=== PATIENT | female | born 1970 | race Caucasian/White ===

== ENCOUNTER → 2017-08-21 | Outpatient (CLI) | payer OTHER ==
[~2017-08-21] MED LIST: HYDR12.53 PO; LISI40TA PO; OXYC-323 PO
[2017-08-21 14:14] LABS: BASO # 0.1 x10^3/uL (0.0-0.2); BASO % 1 % (0-3); EOS % 1 % (0-3); HEMATOCRIT 49.5 % (36.0-47.0); HEMOGLOBIN 16.4 g/dL (12.0-15.5); LYMPH # 1.7 x10^3/uL (1.0-4.8); LYMPH % 22 % (24-48); MEAN CORPUSCULAR HEMOGLOBIN 30 pg (25-35); MEAN CORPUSCULAR HGB CONC 33 g/dL (31-37); MEAN CORPUSCULAR VOLUME 91 fL (79-100); MONO % 6 % (0-9); NEUT % 69 % (31-73); PLATELET COUNT 309 x10^3/uL (140-400); RED BLOOD COUNT 5.45 x10^6/uL (3.50-5.40); RED CELL DISTRIBUTION WIDTH 13.7 % (11.5-14.5)
--- NOTE | 2017-08-21 14:15 | EKG ---
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
[2017-08-21 14:33] LABS: ALBUMIN 3.6 g/dL (3.4-5.0); ALBUMIN/GLOBULIN RATIO 0.9 (1.0-1.7); CALCIUM 9.8 mg/dL (8.5-10.1); CREATININE 1.2 mg/dL (0.6-1.0); GFR 48.4; TOTAL BILIRUBIN 0.6 mg/dL (0.2-1.0); TOTAL PROTEIN 7.6 g/dL (6.4-8.2)
[2017-08-21 14:37] LABS: POTASSIUM 2.7 mmol/L (3.5-5.1)
--- NOTE | 2017-08-21 15:53 | RAD ---
EXAM: Chest 2 views. HISTORY: Preoperative risk factors. COMPARISON: None. FINDINGS: Frontal and lateral views of the chest are obtained. Hyperinflation is consistent with chronic obstructive pulmonary disease. There are no confluent infiltrates. There is no pneumothorax or pleural effusion. The heart is not enlarged. The aortic arch is ectatic measuring 5.0 cm by radiographs. IMPRESSION: 1. Chronic obstructive pulmonary disease. 2. Aneurysmal dilatation of the aortic arch, but this may be partially projectional. Chest CT with contrast could further assess for aneurysm.
== END | disposition home or self-care (01) ==
LOC: SURGPAT 13:40
PROVIDERS: ATTEND Obstetrics & Gynecology
DX: Z01.818 Encounter for other preprocedural examination (principal); J44.9 Chronic obstructive pulmonary disease, unspecified; I71.2 Thoracic aortic aneurysm, without rupture
CPT/HCPCS: 36415; 71020; 80053; 85025; 93005

== ENCOUNTER → 2017-08-28 | Outpatient (CLI) | payer OTHER ==
[~2017-08-28] MED LIST changes: +IOHEXOL 300 MG/ML 100ML VIAL. IV ONE
--- NOTE | 2017-08-28 10:34 | RAD ---
CAD chest with IV contrast Indication: Abnormal chest x-ray. Patient provides history of dissection. Technique: CT of chest with 60 mL of Omnipaque 300 with multi planar reformats. Comparison: Chest x-ray from 08/21/2017 Findings: Heart is normal in size. No pericardial or pleural effusion. There is aneurysmal dilation of the descending thoracic aorta and distal aortic arch. The distal aortic arch diameter measures 4.4 cm (series 2 image 19). The mid descending thoracic aorta diameter measures 4.0 cm (series 2 image 38). The diameter of the aorta at the diaphragmatic hiatus measures 3.6 cm (series 2 image 54). The diameter of the aorta in the infrarenal segment measures 3.2 cm (series 2 image 68). The diameter of the proximal aortic arch measures 3.3 cm (series 2 image 23). The diameter at the level of aortic root approximately measures 3.6 cm (series 2 image 34). There is a intimal flap extending from the origin of the left subclavian artery extending down throughout the length of abdominal aorta and extending into the left proximal common iliac artery. The true lumen is smaller in diameter and lies along the medial and posterior aspect of the aorta probably due to false lumen. The celiac axis originates from the true lumen and is patent. The SMA origin its from the film and and is patent. The bilateral renal arteries originate from the true lumen and are patent. There is abrupt change in opacification of the true and false lumens after takeoff of the bilateral renal arteries this is likely due to delay in scan of the lower abdomen/pelvic sections which we have been added later on after visualization of dissection on the CT chest.. No periaortic inflammatory changes. The visualized sections through the liver, spleen, gallbladder, pancreas, adrenals are within normal limits. Atrophy of the right kidney with multifocal cortical scarring. There is a large nonobstructing stone in the inferior collecting system of the right kidney measuring 1.2 cm. No hydronephrosis. 5 mm nonobstructing stone is seen in the left kidney as well. No bowel obstruction. Mild atherosclerotic disease of the bilateral proximal common iliac arteries. No retroperitoneal or pelvic adenopathy. 6 cm nodular opacity seen in the right upper lobe adjacent to the right minor fissure (series 2 image 32). Chronic deformity noted in the right iliac bone likely posttraumatic. No suspicious bony lesions. Multilevel degenerative disc disease in the spine. Impression: 1. 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 Please see above for full details. 2. Nodule in the right upper lobe (6 cm). This may be intraparenchymal lymph node or slight or pulmonary nodule. CT chest in 6 months recommended. 3. Atrophic right kidney. Nonobstructive bilateral renal stones. Critical findings were identified on 08/28/2017 9:50 AM, read back and verified with Dr. KRZYSZTOF WOLFE MD on 08/28/2017 10:[address] Frankie Stuart DO. PQRS Compliance Statement: One or more of the following individualized dose reduction techniques were utilized for this examination: 1. Automated exposure control 2. Adjustment of the mA and/or kV according to patient size 3. Use of iterative reconstruction technique
== END | disposition home or self-care (01) ==
LOC: CT 08:35
PROVIDERS: ATTEND Obstetrics & Gynecology
DX: R91.8 Other nonspecific abnormal finding of lung field (principal); N20.0 Calculus of kidney; N26.1 Atrophy of kidney (terminal); I10 Essential (primary) hypertension; Z87.891 Personal history of nicotine dependence
CPT/HCPCS: 71260; Q9967

== ENCOUNTER → 2017-09-28 | Outpatient (CLI) | payer OTHER | END | disposition home or self-care (01) | LOC: ECHO 08:55 | DX: I11.9 Hypertensive heart disease without heart failure (principal); I37.1 Nonrheumatic pulmonary valve insufficiency; R06.00 Dyspnea, unspecified | CPT/HCPCS: 93306 ==

== ENCOUNTER 2017-11-11 17:12 | Inpatient (IN) | payer OTHER ==
[2017-11-11] MEDS: ACETAMINOPHEN 325 MG TABLET. PO (17:53)
[2017-11-11 18:19] LABS: ADD MAN DIFF? NO
[2017-11-11 18:29] LABS: ANION GAP 8 (6-14); BLOOD UREA NITROGEN 13 mg/dL (7-20); CALCIUM 8.5 mg/dL (8.5-10.1); CARBON DIOXIDE 30 mmol/L (21-32); CHLORIDE 100 mmol/L (98-107); CREATININE 0.8 mg/dL (0.6-1.0); GFR 77.2; GLUCOSE 119 mg/dL (70-99); POTASSIUM 3.6 mmol/L (3.5-5.1); SODIUM 138 mmol/L (136-145)
[2017-11-11 18:31] LABS: BASO % 0 % (0-3); EOS % 0 % (0-3); HEMATOCRIT 46.5 % (36.0-47.0); HEMOGLOBIN 15.3 g/dL (12.0-15.5); LYMPH # 0.4 x10^3/uL (1.0-4.8); LYMPH % 8 % (24-48); MEAN CORPUSCULAR HEMOGLOBIN 30 pg (25-35); MEAN CORPUSCULAR HGB CONC 33 g/dL (31-37); MEAN CORPUSCULAR VOLUME 90 fL (79-100); MONO # 0.5 x10^3/uL (0.0-1.1); MONO % 11 % (0-9); NEUT # 3.7 x10^3uL (1.8-7.7); NEUT % 81 % (31-73); PLATELET COUNT 225 x10^3/uL (140-400); RED BLOOD COUNT 5.16 x10^6/uL (3.50-5.40); RED CELL DISTRIBUTION WIDTH 13.7 % (11.5-14.5); WHITE BLOOD COUNT 4.6 x10^3/uL (4.0-11.0)
[2017-11-11 18:39] LABS: INFLUENZA A PATIENT NEGATIVE (NEGATIVE)
[2017-11-11 18:40] LABS: INFLUENZA B PATIENT POSITIVE (NEGATIVE)
[2017-11-11 18:41] LABS: OBC FLU VALID
[2017-11-11] MEDS ORDERED: MORPHINE SULFATE 2 MG/ML DISP.SYRIN. IV (20:00)
[2017-11-11] MEDS: IPRATRPIUM/ALBUTEROL 0.5/2.5MG 3 ML NEBU. NEB (20:07)
[2017-11-11] MEDS: OSELTAMIVIR 75 MG CAPSULE PO (20:16)
[2017-11-11] MEDS: LABETALOL 20 MG/4 ML DISP.SYRIN. IVP ×2 (20:17→23:01)
[2017-11-11] MEDS: IV NORMAL SALINE 500ML BAG 500 ML IV (23:01)
[2017-11-11] MEDS: IV NORMAL SALINE 1000ML BAG 1,000 ML IV (23:01)
[2017-11-12 01:32] LABS: BARBITURATES NEG (NEG); BENZODIAZEPINES NEG (NEG); CANNABINOIDS NEG (NEG); COCAINE NEG (NEG); METHADONE NEG (NEG); OPIATES POS (NEG); PHENCYCLIDINE NEG (NEG)
[2017-11-12 01:44] LABS: AMPHETAMINE/METHAMPHETAMINE POS (NEG)
[2017-11-12 01:45] LABS: ETHANOL, URINE NEG (NEG)
[2017-11-12] MEDS: oxyCODONE/APAP 5/325 1 TAB TABLET PO ×2 (04:04→13:42)
[2017-11-12] MEDS: LABETALOL 20 MG/4 ML DISP.SYRIN. IVP ×2 (04:08→20:35)
[2017-11-12 05:09] LABS: ADD MAN DIFF? NO
[2017-11-12 05:24] LABS: BASO % 0 % (0-3); EOS % 0 % (0-3); HEMATOCRIT 42.1 % (36.0-47.0); LYMPH # 0.5 x10^3/uL (1.0-4.8); LYMPH % 14 % (24-48); MEAN CORPUSCULAR HEMOGLOBIN 30 pg (25-35); MEAN CORPUSCULAR HGB CONC 33 g/dL (31-37); MEAN CORPUSCULAR VOLUME 91 fL (79-100); MONO # 0.4 x10^3/uL (0.0-1.1); MONO % 13 % (0-9); NEUT # 2.6 x10^3uL (1.8-7.7); NEUT % 73 % (31-73); PLATELET COUNT 212 x10^3/uL (140-400); RED BLOOD COUNT 4.65 x10^6/uL (3.50-5.40); RED CELL DISTRIBUTION WIDTH 13.9 % (11.5-14.5); WHITE BLOOD COUNT 3.5 x10^3/uL (4.0-11.0)
[2017-11-12] MEDS: IV NORMAL SALINE 1000ML BAG 1,000 ML IV ×2 (05:27→13:43)
[2017-11-12 05:38] LABS: ANION GAP 8 (6-14); BLOOD UREA NITROGEN 11 mg/dL (7-20); CALCIUM 8.2 mg/dL (8.5-10.1); CARBON DIOXIDE 27 mmol/L (21-32); CHLORIDE 103 mmol/L (98-107); CREATININE 0.9 mg/dL (0.6-1.0); GFR 67.4; GLUCOSE 134 mg/dL (70-99); POTASSIUM 3.3 mmol/L (3.5-5.1); SODIUM 138 mmol/L (136-145)
[2017-11-12] MEDS: ENOXAPARIN 40 MG/0.4 ML SYRINGE. SQ (08:36)
[2017-11-12] MEDS: LISINOPRIL 20 MG TABLET PO (08:36)
[2017-11-12] MEDS: hydroCHLOROthiazide 12.5 MG CAPSULE PO (08:37)
[2017-11-12] MEDS: OSELTAMIVIR 75 MG CAPSULE PO ×2 (08:37→20:36)
[2017-11-12] MEDS: ONDANSETRON PF 4 MG/2 ML VIAL. IV (11:00)
[2017-11-12] MEDS ORDERED: MORPHINE SULFATE 2 MG/ML DISP.SYRIN. IV (11:15)
[2017-11-12] MEDS ORDERED: hydrALAZINE 20 MG/ML VIAL. IVP (11:15)
[2017-11-12] MEDS ORDERED: ONDANSETRON PF 4 MG/2 ML VIAL. IV (11:15)
[2017-11-12] MEDS ORDERED: DOCUSATE SODIUM 100 MG CAPSULE. PO (11:15)
[2017-11-12] MEDS: POTASSIUM CHLORIDE 20 MEQ TABLET.ER. PO (13:43)
[2017-11-12] MEDS: traMADol 50 MG TABLET PO (20:36)
[2017-11-12] MEDS: ACETAMINOPHEN 325 MG TABLET. PO (20:36)
[2017-11-13] MEDS: IV NORMAL SALINE 1000ML BAG 1,000 ML IV ×2 (01:12→14:43)
[2017-11-13] MEDS: LABETALOL 20 MG/4 ML DISP.SYRIN. IVP (02:55)
[2017-11-13 04:22] LABS: ADD MAN DIFF? NO
[2017-11-13 04:39] LABS: BASO % 0 % (0-3); EOS % 0 % (0-3); HEMATOCRIT 42.8 % (36.0-47.0); HEMOGLOBIN 14.3 g/dL (12.0-15.5); LYMPH # 0.5 x10^3/uL (1.0-4.8); LYMPH % 14 % (24-48); MEAN CORPUSCULAR HEMOGLOBIN 30 pg (25-35); MEAN CORPUSCULAR HGB CONC 34 g/dL (31-37); MEAN CORPUSCULAR VOLUME 90 fL (79-100); MONO # 0.4 x10^3/uL (0.0-1.1); MONO % 11 % (0-9); NEUT # 2.5 x10^3uL (1.8-7.7); NEUT % 75 % (31-73); PLATELET COUNT 184 x10^3/uL (140-400); RED BLOOD COUNT 4.75 x10^6/uL (3.50-5.40); WHITE BLOOD COUNT 3.3 x10^3/uL (4.0-11.0)
[2017-11-13 04:50] LABS: ANION GAP 6 (6-14); BLOOD UREA NITROGEN 7 mg/dL (7-20); CALCIUM 7.8 mg/dL (8.5-10.1); CARBON DIOXIDE 30 mmol/L (21-32); CHLORIDE 102 mmol/L (98-107); CREATININE 0.7 mg/dL (0.6-1.0); GFR 90.1; GLUCOSE 121 mg/dL (70-99); POTASSIUM 3.4 mmol/L (3.5-5.1); SODIUM 138 mmol/L (136-145)
[2017-11-13] MEDS: hydroCHLOROthiazide 12.5 MG CAPSULE PO (07:49)
[2017-11-13] MEDS: OSELTAMIVIR 75 MG CAPSULE PO ×2 (07:49→20:48)
[2017-11-13] MEDS: LISINOPRIL 20 MG TABLET PO (07:50)
[2017-11-13] MEDS: ENOXAPARIN 40 MG/0.4 ML SYRINGE. SQ (07:50)
[2017-11-13] MEDS: ACETAMINOPHEN 325 MG TABLET. PO (10:00)
[2017-11-13] MEDS: oxyCODONE/APAP 5/325 1 TAB TABLET PO (20:48)
[2017-11-14] MEDS: traMADol 50 MG TABLET PO (00:13)
[2017-11-14] MEDS: ALBUTEROL SULFATE 2.5 MG/3 ML NEBU. NEB (00:13)
[2017-11-14] MEDS: IV NORMAL SALINE 1000ML BAG 1,000 ML IV (04:05)
[2017-11-14 04:41] LABS: ADD MAN DIFF? NO
[2017-11-14 04:50] LABS: BASO % 1 % (0-3); EOS % 0 % (0-3); LYMPH % 30 % (24-48); MEAN CORPUSCULAR HEMOGLOBIN 30 pg (25-35); MEAN CORPUSCULAR HGB CONC 33 g/dL (31-37); MEAN CORPUSCULAR VOLUME 90 fL (79-100); MONO # 0.3 x10^3/uL (0.0-1.1); MONO % 10 % (0-9); NEUT # 1.9 x10^3uL (1.8-7.7); NEUT % 59 % (31-73); PLATELET COUNT 160 x10^3/uL (140-400); RED BLOOD COUNT 4.67 x10^6/uL (3.50-5.40); WHITE BLOOD COUNT 3.3 x10^3/uL (4.0-11.0)
[2017-11-14 05:17] LABS: ALBUMIN 2.7 g/dL (3.4-5.0); ALBUMIN/GLOBULIN RATIO 0.8 (1.0-1.7); ALK PHOS 64 U/L (46-116); ALT (SGPT) 16 U/L (14-59); ANION GAP 8 (6-14); AST (SGOT) 24 U/L (15-37); BLOOD UREA NITROGEN 12 mg/dL (7-20); BUN/CREATININE RATIO 17 (6-20); CALCIUM 8.3 mg/dL (8.5-10.1); CARBON DIOXIDE 28 mmol/L (21-32); CHLORIDE 103 mmol/L (98-107); CREATININE 0.7 mg/dL (0.6-1.0); GFR 90.1; GLUCOSE 92 mg/dL (70-99); POTASSIUM 3.3 mmol/L (3.5-5.1); SODIUM 139 mmol/L (136-145); TOTAL BILIRUBIN 0.5 mg/dL (0.2-1.0); TOTAL PROTEIN 6.3 g/dL (6.4-8.2)
== END 2017-11-14 06:47 | disposition left against medical advice (07) | DRG 193 ==
LOC: ER 17:12 → 5 NORTH 18:00
DX: J10.1 Influenza due to other identified influenza virus with other respiratory manifestations (principal); J96.00 Acute respiratory failure, unspecified whether with hypoxia or hypercapnia; E87.6 Hypokalemia; I10 Essential (primary) hypertension; I77.819 Aortic ectasia, unspecified site; M54.5 Low back pain; F15.10 Other stimulant abuse, uncomplicated
CPT/HCPCS: 36415; 71045; 80048; 80053; 80307; 85025; 87804; 87804-59; 94640; 94760; 96374; 99285; 99285-25; J1650; J2405; J3490; J7030; J7040; J7613; J7620

== ENCOUNTER 2018-07-26 08:34 | Emergency (ER) | payer OTHER ==
[~2018-07-26] VITALS: Ht 167.6 cm; Wt 68.0 kg
[~2018-07-26 08:34] MED LIST changes: -IOHEXOL 300 MG/ML 100ML VIAL. IV ONE; +LISI-130 PO; -LISI40TA PO
--- NOTE | 2018-07-26 09:49 | PHYS DOC ---
Past Medical History Past Medical History: Hypertension Additional Past Medical Histor: ectopic preg Past Surgical History: , Tubal ligation Smoking: Cigarettes Alcohol Use: Occasionally Drug Use: Amphetamine Adult General Chief Complaint Chief Complaint: ABDOMINAL PAIN HPI HPI 48-year-old female presenting to the emergency department today with abdominal pain in the left lower quadrant that is sharp has been present for about 24 hours. Nonradiating, nonmigratory and without alleviating factors. She has a history of a tubal and is status post tubal ligation. Review of systems was positive for nausea with vomiting. She describes her vomitus is nonbilious and nonbloody. She denies fevers or chills. She denies chest pain or shortness of breath. All other review of systems is negative unless otherwise noted in history of present illness. ED course: 48-year-old female presenting with left lower quadrant abdominal pain. hypertension present. Blood work ordered along with CT abdomen pelvis. The time is now 1155: I have been informed the patient has an aortic dissection and aneurysm. I went and spoke with the patient apparently she has had this for approximately 4 years and is currently treated by Dr. Maria at . I spoke with Dr. Murray who is our vascular surgeon on-call who recommended initiating blood pressure control and heart rate control along with getting angiogram of the chest abdomen pelvis. She will need to be transferred to [facility]. We will initiate transfer. The time is now 2:07 PM. I spoken with the patient's cardiothoracic surgeon at the [facility] Dr. Maria who states the patient's aortic dissection does not need an immediate surgery. He did offer to accept the patient for admission however after talking to our cardiothoracic surgeon Dr. LYNCH , we will admit the patient to our hospital for hypertension management. The remainder the workup is unremarkable. After coordinating the patient to be admitted to our hospital the patient desires to leave AMA. I informed the patient of their right to a medical screening exam and any treatment and/or stabilization that may be necessary regardless of their ability to pay. The patient appears to have intact insight, judgment, and reason. In my opinion, this patient has the capacity to make decisions. The patient has a type B aortic dissection. My desire and plan was to admit the patient for blood pressure management because her blood pressure was over 200 when she came in in the emergency department. I explained the risk of and disability to the patient in plain language which they were able to demonstrate in their own words verbal understanding. I recommended the pt follow up with her cardiothoracic surgeon in 1 day or pcp in 1 day to treat her bp. I explained that at any time if the patient changed their mind, we are always open and would be happy to have them back. The patient refused further care and then left against medical advice. Review of Systems Review of Systems SEE ABOVE. Current Medications Current Medications Current Medications Medications (Trade) Dose Ordered Sig/Kennedi Start Time Stop Time Status Last Admin Dose Admin Clonidine HCl (Catapres) 0.1 mg 1X ONCE 07/26/18 10:15 07/26/18 10:16 DC 07/26/18 10:23 0.1 MG Esmolol HCl 250 ml @ 0 mls/hr 1X ONCE 07/26/18 12:00 07/26/18 12:01 DC 07/26/18 12:32 21 MLS/HR Fentanyl Citrate (Fentanyl 2ml Vial) 50 mcg PRN Q30MIN PRN 07/26/18 10:15 07/26/18 10:55 50 MCG Info (CONTRAST GIVEN -- Rx MONITORING) 1 each PRN DAILY PRN 07/26/18 11:00 07/28/18 10:59 Iohexol (Omnipaque 300 Mg/ml) 90 ml 1X ONCE 07/26/18 12:00 07/26/18 12:01 DC 07/26/18 12:09 90 ML Morphine Sulfate (Morphine Sulfate) 2 mg PRN Q2HR PRN 07/26/18 14:00 07/27/18 13:59 Ondansetron HCl (Zofran) 4 mg PRN Q8HRS PRN 07/26/18 14:00 07/27/18 13:59 Sodium Chloride 1,000 ml @ 125 mls/hr Q8H 07/26/18 13:56 07/27/18 13:55 Allergies Allergies Allergies Coded Allergies Type Severity Reaction Last Updated Verified No Known Drug Allergies 08/21/17 No Physical Exam Physical Exam SEE ABOVE Constitutional: Well developed, well nourished, no acute distress, non-toxic appearance. [] HENT: Normocephalic, atraumatic, bilateral external ears normal, oropharynx moist, no oral exudates, nose normal. [] Eyes: PERRLA, EOMI, conjunctiva normal, no discharge. [] Neck: Normal range of motion, no tenderness, supple, no stridor. [] Cardiovascular:Heart rate regular rhythm, no murmur [] Lungs & Thorax: Bilateral breath sounds clear to auscultation [] Abdomen: Bowel sounds normal, soft, no tenderness, no masses, no pulsatile masses. No rebound tenderness or guarding. Negative McBurney's point. Negative Smith sign. Skin: Warm, dry, no erythema, no rash. [] Back: No tenderness, no CVA tenderness. [] Extremities: No tenderness, no cyanosis, no clubbing, ROM intact, no edema. [] Neurologic: Alert and oriented X 3, normal motor function, normal sensory function, no focal deficits noted. [] Psychologic: Affect normal, judgement normal, mood normal. [] Current Patient Data Vital Signs Vital Signs Date Time Temp Pulse Resp B/P (MAP) Pulse Ox O2 Delivery O2 Flow Rate FiO2 07/26/18 13:49 72 21 136/91 (106) 97 07/26/18 13:37 Room Air 07/26/18 10:55 2.0 07/26/18 09:42 97.6 97.6 Lab Values Laboratory Tests Test 07/26/18 09:26 07/26/18 09:50 POC Urine HCG, Qualitative Hcg negative (Negative) White Blood Count 8.3 x10^3/uL (4.0-11.0) Red Blood Count 5.47 x10^6/uL (3.50-5.40) H Hemoglobin 17.3 g/dL (12.0-15.5) H Hematocrit 50.2 % (36.0-47.0) H Mean Corpuscular Volume 92 fL (79-100) Mean Corpuscular Hemoglobin 32 pg (25-35) Mean Corpuscular Hemoglobin Concent 34 g/dL (31-37) Red Cell Distribution Width 12.8 % (11.5-14.5) Platelet Count 257 x10^3/uL (140-400) Neutrophils (%) (Auto) 79 % (31-73) H Lymphocytes (%) (Auto) 13 % (24-48) L Monocytes (%) (Auto) 7 % (0-9) Eosinophils (%) (Auto) 0 % (0-3) Basophils (%) (Auto) 1 % (0-3) Neutrophils # (Auto) 6.6 x10^3uL (1.8-7.7) Lymphocytes # (Auto) 1.0 x10^3/uL (1.0-4.8) Monocytes # (Auto) 0.6 x10^3/uL (0.0-1.1) Eosinophils # (Auto) 0.0 x10^3/uL (0.0-0.7) Basophils # (Auto) 0.0 x10^3/uL (0.0-0.2) Urine Collection Type Unknown Urine Color Yellow Urine Clarity Cloudy Urine pH 7.5 Urine Specific [place] 1.015 Urine Protein 100 mg/dL (NEG-TRACE) Urine Glucose (UA) Negative mg/dL (NEG) Urine Ketones (Stick) Negative mg/dL (NEG) Urine Blood Negative (NEG) Urine Nitrite Negative (NEG) Urine Bilirubin Negative (NEG) Urine Urobilinogen Dipstick 0.2 mg/dL (0.2 mg/dL) Urine Leukocyte Esterase Negative (NEG) Urine RBC 0 /HPF (0-2) Urine WBC 0 /HPF (0-4) Urine Squamous Epithelial Cells Few /LPF Urine Amorphous Sediment Present /HPF Urine Bacteria 0 /HPF (0-FEW) Sodium Level 141 mmol/L (136-145) Potassium Level 3.2 mmol/L (3.5-5.1) L Chloride Level 101 mmol/L (98-107) Carbon Dioxide Level 29 mmol/L (21-32) Anion Gap 11 (6-14) Blood Urea Nitrogen 11 mg/dL (7-20) Creatinine 0.7 mg/dL (0.6-1.0) Estimated GFR (Cockcroft-Gault) 89.7 Glucose Level 128 mg/dL (70-99) H Lactic Acid Level 0.9 mmol/L (0.4-2.0) Calcium Level 9.4 mg/dL (8.5-10.1) Total Bilirubin 0.8 mg/dL (0.2-1.0) Direct Bilirubin 0.1 mg/dL (0.0-0.2) Aspartate Amino Transferase (AST) 22 U/L (15-37) Alanine Aminotransferase (ALT) 28 U/L (14-59) Alkaline Phosphatase 73 U/L (46-116) Troponin I Quantitative < 0.017 ng/mL (0.000-0.055) Total Protein 7.4 g/dL (6.4-8.2) Albumin 3.9 g/dL (3.4-5.0) Lipase 79 U/L (73-393) Serum Test, Qualitative Negative (NEG) Laboratory Tests 07/26/18 09:50 Laboratory Tests 07/26/18 09:50 EKG EKG [] Radiology/Procedures Radiology/Procedures [] Course & Med Decision Making Course & Med Decision Making Pertinent Labs and Imaging studies reviewed. (See chart for details) [] Dragon Disclaimer Dragon Disclaimer This electronic medical record was generated, in whole or in part, using a voice recognition dictation system. Departure Departure Impression: Primary Impression: Aortic dissection Disposition: AGAINST MEDICAL ADVICE Condition: GRAVE Referrals: ALYSHA MORA MD (PCP) KULDEEP GOLD MD Jul 26, 2018 09:49
[2018-07-26] MEDS ORDERED: IV NORMAL SALINE 1000ML BAG 1,000 ML IV SCH ×2 (10:05→13:56)
--- NOTE | 2018-07-26 10:12 | EKG ---
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
[2018-07-26 10:15] LABS: BASO % 1 % (0-3); EOS % 0 % (0-3); HEMATOCRIT 50.2 % (36.0-47.0); HEMOGLOBIN 17.3 g/dL (12.0-15.5); LYMPH % 13 % (24-48); MEAN CORPUSCULAR HEMOGLOBIN 32 pg (25-35); MEAN CORPUSCULAR HGB CONC 34 g/dL (31-37); MEAN CORPUSCULAR VOLUME 92 fL (79-100); MONO # 0.6 x10^3/uL (0.0-1.1); MONO % 7 % (0-9); NEUT # 6.6 x10^3uL (1.8-7.7); NEUT % 79 % (31-73); PLATELET COUNT 257 x10^3/uL (140-400); RED BLOOD COUNT 5.47 x10^6/uL (3.50-5.40); RED CELL DISTRIBUTION WIDTH 12.8 % (11.5-14.5); WHITE BLOOD COUNT 8.3 x10^3/uL (4.0-11.0)
[2018-07-26] MEDS ORDERED: cloNIDine HCL 0.1 MG TABLET PO ONE (10:15)
[2018-07-26] MEDS ORDERED: ONDANSETRON PF 4 MG/2 ML VIAL. IV ONE (10:15)
[2018-07-26 10:16] LABS: BILIRUBIN,URINE NEGATIVE (NEG); CLARITY,URINE CLOUDY; COLOR,URINE YELLOW; NITRITE,URINE NEGATIVE (NEG); PH,URINE 7.5; PROTEIN,URINE 100 mg/dL (NEG-TRACE); UROBILINOGEN,URINE 0.2 mg/dL (0.2 mg/dL)
[2018-07-26 10:21] LABS: AMORPHOUS SEDIMENT,UR PRESENT /HPF; BACTERIA,URINE 0 /HPF (0-FEW); CALCIUM 9.4 mg/dL (8.5-10.1); CREATININE 0.7 mg/dL (0.6-1.0); GFR 89.7; POTASSIUM 3.2 mmol/L (3.5-5.1); RBC,URINE 0 /HPF (0-2); SQUAMOUS EPITHELIAL CELL,UR FEW /LPF; WBC,URINE 0 /HPF (0-4)
[2018-07-26 10:24] LABS: PREG TEST PT QUAL NEGATIVE (NEG)
[2018-07-26] MEDS: fentaNYL PF VIAL 100 MCG/2 ML VIAL IV PRN ×2 (10:24→10:55)
[2018-07-26 10:27] LABS: ALBUMIN 3.9 g/dL (3.4-5.0); DIRECT BILIRUBIN 0.1 mg/dL (0.0-0.2); TOTAL BILIRUBIN 0.8 mg/dL (0.2-1.0); TOTAL PROTEIN 7.4 g/dL (6.4-8.2)
[2018-07-26] MEDS ORDERED: IOHEXOL 300 MG/ML 100ML VIAL. IV ONE ×2 (10:45→12:00)
[2018-07-26] MEDS ORDERED: CONTRAST GIVEN. MC PRN (11:00)
--- NOTE | 2018-07-26 11:48 | RAD ---
CT ABD PELV W/ IV CONTRST ONLY Indication: LEFT LOWER QUADRANT ABD PAIN
OMNI 300 75ML, NO PRIORS Exposure: One or more of the following individualized dose reduction techniques were utilized for this examination: 1. Automated exposure control 2. Adjustment of the mA and/or kV according to patient size 3. Use of iterative reconstruction technique. Comparison: None are available. Contrast: Intravenous contrast was given. No oral contrast per request. FINDINGS: Lower thorax: Lung bases are clear. Liver: Several tiny subcentimeter lesions, too small to characterize but would most commonly be of benign etiology. Spleen: Unremarkable Pancreas: Unremarkable Adrenals: No evidence of mass. Kidneys: Right kidney demonstrates an abnormal morphology with a nodular contour and a small size. Right kidney measures 9.9 cm longitudinal, left kidney measures 11.7 cm longitudinal. Both kidneys demonstrate symmetric enhancement with contrast. Dense calcification within the lower pole the right kidney could represent a nonobstructive calculus or parenchymal calcification, measuring 12 mm. Urinary tracts: No hydronephrosis. Gallbladder: Mild gallbladder wall thickening. No calcified stone. Lymph nodes: No significant enlargement Vessels: The aorta is aneurysmal, greatest at the lower thorax where it is partially visualized, and measures 5.7 cm x 4.4 cm in transverse dimensions. There is an aortic dissection. This is visualized on the uppermost slice at the level of the lower chest. This distends into the left common iliac artery and probably into the proximal aspect of the left external iliac artery. The true lumen appears to supply the celiac trunk and superior mesenteric artery which are patent. The left renal artery is supplied by the true lumen. The right renal artery is supplied by the false lumen. Flow is identified within both renal arteries. Inferior mesenteric artery is difficult to localize origin but probably the true lumen. Thrombus surrounds the distal false lumen which becomes narrowed just above the bifurcation. The dissection extends into the left common iliac artery and possibly the very proximal aspect of the left external iliac artery. GI tract: No evidence of acute colitis. No evidence of bowel obstruction. Appendix is normal. Reproductive organs:No evidence of mass. Urinary bladder: Unremarkable. Peritoneum: No evidence of pneumoperitoneum. No free fluid. Abdominal wall:Unremarkable Spine: Degenerative spondylosis Bones: Degenerative changes at the skeletal pelvis. There is some deformity at the right iliac bone appears chronic and could be related to prior surgery, but no active bone destruction is seen. IMPRESSION: 1. Aneurysm of the partially visualized lower thoracic aorta and abdominal aorta, measures largest on the uppermost thoracic slice, 5.7 cm x 4.4 cm. Partially visualized aortic dissection also extending from this upper most slice, into the left iliac artery. The true lumen appears to supply the celiac trunk, superior mesenteric artery and left renal artery, and the false lumen appears to supply the right renal artery. Recommend CTA of the thoracic aorta to evaluate the extent of involvement of the thoracic aorta with aneurysm and dissection. Correlate for risk factors such as connective tissue disease. 2. Right kidney is small with a nodular contour, may be due to chronic vascular compromise. However, the kidneys demonstrate symmetric enhancement on this exam. 3. Dense calcification or nonobstructing calculus at the lower pole the right kidney. 4. Gallbladder wall thickening, raising the question of cholecystitis. No evidence of calcified stone. FOR INTERNAL CODING PURPOSES Critical result: Findings discussed with Dr. Allen at 07/26/2018 11:41 AM. RESULT CODE: (C) Electronically signed by: Trenton Upton MD (07/26/2018 11:45 AM) [id number]
[2018-07-26] MEDS ORDERED: ESMOLOL 2500MG/250ML PREMIX 250 ML IV ONE (12:00)
--- NOTE | 2018-07-26 12:19 | RAD ---
Pelvic ultrasound Clinical Indication:LLQ PAIN. . Transabdominal scan was performed Uterus: * Size (in centimeters): 7.1 longitudinal by 3.4 AP by 4.5 wide. * Appearance: No evidence of mass * Endometrium: 3 mm endometrial stripe thickness. Uniform appearance. Right ovary: * Size: 2.1 cm long axis. * Blood flow: Intact * Appearance: No significant mass. Left ovary: * Size: 3.0 cm long axis. * Blood flow: Intact * Appearance: No significant mass. Free fluid: None visualized IMPRESSION: No significant sonographic abnormality. Electronically signed by: Trenton Upton MD (07/26/2018 12:16 PM) [id number]
--- NOTE | 2018-07-26 13:05 | RAD ---
CTA of the chest, abdomen and pelvis with contrast, 07/26/2018: History: Aortic dissection. Multidetector CT imaging was performed following an IV bolus injection of iodinated contrast material. Multiplanar reconstructions were produced including 3-D volume rendered reconstructions of the aorta and its major branches. Comparison is made to a CT abdomen and pelvis study from earlier in the day as well as an older CT chest exam from 08/28/2017. The ascending aorta is of normal caliber. There are pulsation type artifact related to the proximal ascending aorta. The origins of the cervical cephalic arteries from the aortic arch are patent. There is dilatation of the proximal descending thoracic aorta which measures 5 cm in width. A dissection flap originates from the proximal descending aorta just distal to the takeoff of the left subclavian artery. These findings are unchanged since 08/28/2017 study. There is a large false lumen which is opacified and spirals down through the thoracic aorta into the abdomen. The true lumen is smaller. The aorta measures 4.5 cm in width at the level of diaphragm. In the abdomen, the celiac and superior mesenteric arteries are patent, arising from the true lumen. There does appear to be moderate narrowing at their origins. Single patent renal arteries arise from the true lumen. At the infrarenal level the aorta measures 3.9 x 4.2 cm compared to measurements of 3.4 x 3.8 cm on 08/28/2017 exam. The dissection flap extends into the left common iliac artery but not the right. The true lumen at the left common iliac artery level is severely narrowed. The dissection flap extends inferiorly into the left external iliac artery at which point it is no longer visible. The true and false lumens are opacified throughout their courses. Incidental CT findings include the presence of moderate right renal cortical scarring. There are calculi in the lower pelvis of both kidneys. There is edematous thickening of the gallbladder wall. A small unchanged density in the right upper lobe adjacent to the minor fissure is probably a scar. IMPRESSION: 1. Aneurysmal dilatation of the descending thoracic and abdominal aorta with an associated chronic type B dissection extending down to the left external iliac artery level as described above. The dissection appears stable since 08/28/2017. 2. The infrarenal abdominal aortic aneurysm component of this process has increased slightly in size since 08/28/2017. 3. Nonobstructing bilateral intrarenal calculi. PQRS Compliance Statement: One or more of the following individualized dose reduction techniques were utilized for this examination: 1. Automated exposure control 2. Adjustment of the mA and/or kV according to patient size 3. Use of iterative reconstruction technique
[2018-07-26 14:00] VITALS: BP 129/77
[2018-07-26] MEDS ORDERED: ONDANSETRON PF 4 MG/2 ML VIAL. IV PRN (14:00)
[2018-07-26] MEDS ORDERED: MORPHINE SULFATE 2 MG/ML VIAL. IV PRN (14:00)
== END 2018-07-26 14:04 | disposition left against medical advice (07) ==
LOC: ER 08:34
DX: I71.02 Dissection of abdominal aorta (principal); R11.2 Nausea with vomiting, unspecified; I10 Essential (primary) hypertension; F17.210 Nicotine dependence, cigarettes, uncomplicated; Z98.51 Tubal ligation status
CPT/HCPCS: 36415; 71275; 74174; 74177; 76856; 80048; 80076; 81001; 81025; 83605; 83690; 84484; 84703; 85025; 93005; 96361; 96365; 96375; 96376; 99285; J2405; J3010; J3490; J7030; Q9967

== ENCOUNTER 2018-08-02 14:18 | Emergency (ER) | payer OTHER ==
[~2018-08-02] VITALS: Ht 165.1 cm; Wt 66.8 kg
[2018-08-02 14:57] LABS: BILIRUBIN,URINE NEGATIVE (NEG); CLARITY,URINE CLEAR; COLOR,URINE YELLOW; NITRITE,URINE POSITIVE (NEG); PH,URINE 5.5; PROTEIN,URINE 30 mg/dL (NEG-TRACE); UROBILINOGEN,URINE 0.2 mg/dL (0.2 mg/dL)
[2018-08-02 15:05] LABS: BACTERIA,URINE MANY /HPF (0-FEW); SQUAMOUS EPITHELIAL CELL,UR MOD /LPF
[2018-08-02] MEDS ORDERED: LABETALOL 20 MG/4 ML DISP.SYRIN. IVP ONE (15:15)
[2018-08-02 15:21] LABS: BARBITURATES NEG (NEG); BENZODIAZEPINES POS (NEG); CANNABINOIDS NEG (NEG); COCAINE NEG (NEG); METHADONE NEG (NEG); OPIATES NEG (NEG); PHENCYCLIDINE NEG (NEG)
[2018-08-02 15:25] LABS: AMPHETAMINE/METHAMPHETAMINE POS (NEG)
--- NOTE | 2018-08-02 15:31 | EKG ---
[facility] [address] [place] [address] Test Date: 2018-08-02 Test Time: 15:11:23 Pat Name: JOSE ANDRADE Department: Room: Gender: F Partner: : 1970 Requested By: CHETNA ESPARZA Order Number: [id number] Reading MD: Lenny Burt MD Measurements Intervals [place] Rate: 95 P: 14 HI: 146 QRS: 21 QRSD: 88 T: 118 QT: 334 QTc: 423 Interpretive Statements SINUS RHYTHM NON-SPECIFIC ST/T CHANGES Electronically Signed On 08-05-2018 14:06:24 HAIR SALON MANAGER by Lenny Burt MD
--- NOTE | 2018-08-02 16:04 | RAD ---
CHEST PA LATERAL History: Low abdominal pain, history of aortic dissection Comparison: AP chest, November 11, 2017. Findings: Aneurysmal and tortuous thoracic aorta is unchanged. Cardiac size is normal. Pulmonary vasculature is normal. The lungs are clear. No pleural effusion or pneumothorax is seen. There is no acute bone abnormality. IMPRESSION: 1. No acute cardiopulmonary process. 2. Radiographically stable thoracic aortic aneurysm. Electronically signed by: Brandin Cobb MD (08/02/2018 4:01 PM) [id number]
[2018-08-02] MEDS ORDERED: ACETAMINOPHEN 500 MG TABLET PO ONE (16:30)
--- NOTE | 2018-08-02 16:56 | PHYS DOC ---
Past Medical History Past Medical History: Hypertension Additional Past Medical Histor: ectopic preg Past Surgical History: , Tubal ligation Alcohol Use: Occasionally Drug Use: Methamphetamine Adult General Chief Complaint Chief Complaint: ABDOMINAL PAIN HPI HPI Patient is a 48 year old female with history of hypertension, stable aortic dissection, who presents today complaining of 8 out of 10 throbbing bilateral lower abdominal pain that has been going on for 10 days. Patient states she was seen in our ED 5 days ago. She states she had an extensive workup including a CT of the chest and abdomen as well as ultrasound of the abdomen. She states there was no acute findings but she was noted to have a chronic aortic dissection which she states she followed was admitted at [facility] a couple days ago she states they did not do anything for it. Patient states the pain has continued since then. She states the pain is worse at night. Denies any chest pain or shortness of breath. Review of Systems Review of Systems Constitutional: Denies fever or chills [] Eyes: Denies change in visual acuity, redness, or eye pain [] HENT: Denies nasal congestion or sore throat [] Respiratory: Denies cough or shortness of breath [] Cardiovascular: No additional information not addressed in HPI [] GI: Reports bilateral lower abdominal pain, denies nausea, vomiting, bloody stools or diarrhea [] : Denies dysuria or hematuria [] Musculoskeletal: Denies back pain or joint pain [] Integument: Denies rash or skin lesions [] Neurologic: Denies headache, focal weakness or sensory changes [] All other systems were reviewed and found to be within normal limits, except as documented in this note. Current Medications Current Medications Current Medications Medications (Trade) Dose Ordered Sig/Kennedi Start Time Stop Time Status Last Admin Dose Admin Acetaminophen (Tylenol) 1,000 mg 1X ONCE 08/02/18 16:30 08/02/18 16:31 DC 08/02/18 16:30 1,000 MG Ceftriaxone Sodium 50 ml @ 100 mls/hr 1X ONCE 08/02/18 16:15 08/02/18 16:44 DC 08/02/18 16:15 100 MLS/HR Labetalol HCl (Normodyne Iv Push) 10 mg 1X ONCE 08/02/18 15:15 08/02/18 15:16 DC 08/02/18 16:05 10 MG Allergies Allergies Allergies Coded Allergies Type Severity Reaction Last Updated Verified No Known Drug Allergies 08/21/17 No Physical Exam Physical Exam Constitutional: Well developed, well nourished, no acute distress, non-toxic appearance. [] HENT: Normocephalic, atraumatic, bilateral external ears normal, oropharynx moist, no oral exudates, nose normal. [] Eyes: PERRLA, EOMI, conjunctiva normal, no discharge. [] Neck: Normal range of motion, no tenderness, supple, no stridor. [] Cardiovascular:Heart rate regular rhythm, no murmur [] Lungs & Thorax: Bilateral breath sounds clear to auscultation [] Abdomen: Bowel sounds normal, soft, diffuse tenderness in the lower abdomen worse on the left lower quadrant tenderness, no masses, no pulsatile masses. [] Skin: Warm, dry, no erythema, no rash. [] Back: No tenderness, no CVA tenderness. [] Extremities: No tenderness, no cyanosis, no clubbing, ROM intact, no edema. [] Neurologic: Alert and oriented X 3, normal motor function, normal sensory function, no focal deficits noted. [] Psychologic: Affect normal, judgement normal, mood normal. [] Current Patient Data Vital Signs Vital Signs Date Time Temp Pulse Resp B/P (MAP) Pulse Ox O2 Delivery O2 Flow Rate FiO2 08/02/18 17:22 98.3 82 16 162/90 (114) 98 Room Air 98.3 Lab Values Laboratory Tests Test 08/02/18 14:50 08/02/18 15:56 08/02/18 16:50 Urine Collection Type Unknown Urine Color Yellow Urine Clarity Clear Urine pH 5.5 Urine Specific [place] 1.025 Urine Protein 30 mg/dL (NEG-TRACE) Urine Glucose (UA) Negative mg/dL (NEG) Urine Ketones (Stick) Negative mg/dL (NEG) Urine Blood Trace (NEG) Urine Nitrite Positive (NEG) Urine Bilirubin Negative (NEG) Urine Urobilinogen Dipstick 0.2 mg/dL (0.2 mg/dL) Urine Leukocyte Esterase Moderate (NEG) Urine RBC 1-2 /HPF (0-2) Urine WBC 11-20 /HPF (0-4) Urine Squamous Epithelial Cells Mod /LPF Urine Bacteria Many /HPF (0-FEW) Urine Mucus Slight /LPF Urine Opiates Screen Neg (NEG) Urine Methadone Screen Neg (NEG) Urine Barbiturates Neg (NEG) Urine Phencyclidine Screen Neg (NEG) Urine Amphetamine/Methamphetamine Pos (NEG) Urine Benzodiazepines Screen Pos (NEG) Urine Cocaine Screen Neg (NEG) Urine Cannabinoids Screen Neg (NEG) Urine Ethyl Alcohol Neg (NEG) Troponin I Quantitative < 0.017 ng/mL (0.000-0.055) Ethyl Alcohol Level < 10 mg/dL (0-10) Sodium Level 141 mmol/L (136-145) Potassium Level 3.7 mmol/L (3.5-5.1) Chloride Level 104 mmol/L (98-107) Carbon Dioxide Level 31 mmol/L (21-32) Anion Gap 6 (6-14) Blood Urea Nitrogen 18 mg/dL (7-20) Creatinine 0.9 mg/dL (0.6-1.0) Estimated GFR (Cockcroft-Gault) 67.1 BUN/Creatinine Ratio 20 (6-20) Glucose Level 111 mg/dL (70-99) H Calcium Level 9.5 mg/dL (8.5-10.1) Magnesium Level 1.8 mg/dL (1.8-2.4) Total Bilirubin 0.6 mg/dL (0.2-1.0) Aspartate Amino Transferase (AST) 19 U/L (15-37) Alanine Aminotransferase (ALT) 31 U/L (14-59) Alkaline Phosphatase 78 U/L (46-116) C-Reactive Protein, Quantitative 13.5 mg/L (0-3.3) H Total Protein 7.3 g/dL (6.4-8.2) Albumin 3.4 g/dL (3.4-5.0) Albumin/Globulin Ratio 0.9 (1.0-1.7) L Lipase 108 U/L (73-393) Laboratory Tests 08/02/18 16:50 EKG EKG 15:[address] Llamas sinus rhythm heart rate 95 no STEMI[] Radiology/Procedures Radiology/Procedures []PROCEDURE: CHEST PA & LATERAL CHEST PA LATERAL History: Low abdominal pain, history of aortic dissection Comparison: AP chest, November 11, 2017. Findings: Aneurysmal and tortuous thoracic aorta is unchanged. Cardiac size is normal. Pulmonary vasculature is normal. The lungs are clear. No pleural effusion or pneumothorax is seen. There is no acute bone abnormality. IMPRESSION: 1. No acute cardiopulmonary process. 2. Radiographically stable thoracic aortic aneurysm. Electronically signed by: Brandin Cobb MD (08/02/2018 4:01 PM) [id number] DICTATED and SIGNED BY: BRANDIN COBB MD DATE: 08/02/18 1558 Course & Med Decision Making Course & Med Decision Making Pertinent Labs and Imaging studies reviewed. (See chart for details) This is a 48-year-old female patient presenting to the ED today with abdominal pain specifically in the lower abdomen for 10 days. Patient was worked up in the ED for 5 days ago for the same, she was noted to have a chronic stable aortic dissection she signed out AMA from [place]. She states she went to and was admitted but they did not do anything for her and discharged. BP 196/ 118 with HR of 102, also positive for methamphetamine use. Labetalol 10 mg IV ordered. Consulted with Dr. Cunningham Cardio Thoracic surgeon. He states he already talked to the doctor who took care of this patient the last time she was at the ED. He states this patient is noncompliant. He states the kind of surgery this patient needs he does not perform only [facility] does those kind of procedures. He states the reason was not able to do surgery on this patient is because she is using methamphetamines. He states patient can be admitted for blood pressure management but he will not come to see patient because there is nothing he can do for her. Above Information was given to patient, she decided to sign out AMA. Patient is alert oriented 4 and able to make her own decisions. Risk of leaving AMA given including and disability. Marcy: I saw and evaluated this patient. Has had an aortic dissection for over a year now according to history. She is describing crampy abdominal pain I reviewed in detail the records she had an extensive workup over this last week to include ultrasound CTA here she then went to and had another very complete evaluation including ICU level care for blood pressure control [employer] consultation with negative pelvic examination. She is not a candidate for thoracic or aortic surgery until she is abstaining for methamphetamine which she has not done yet. We offered her admission for blood pressure control in to this hospital. She declined she knows the risks of leaving up to and including or worsening for dissection. She was of sound mind she did not appear acutely intoxicated with methamphetamine clinically. She was advised to come back anytime and she will go home against medical advice Blaire Disclaimer Blaire Disclaimer This electronic medical record was generated, in whole or in part, using a voice recognition dictation system. Departure Departure Impression: Primary Impression: Methamphetamine use Additional Impressions: Aortic aneurysm and dissection Hypertensive urgency Disposition: 07 AGAINST MEDICAL ADVICE Condition: STABLE Referrals: NO PCP (PCP) Problem Qualifiers CHETNA ESPARZA APRN Aug 02, 2018 16:56 PRETTY MA MD Aug 03, 2018 18:49
[2018-08-02 17:07] LABS: CALCIUM 9.5 mg/dL (8.5-10.1); CREATININE 0.9 mg/dL (0.6-1.0); GFR 67.1; POTASSIUM 3.7 mmol/L (3.5-5.1)
[2018-08-02 17:13] LABS: ALBUMIN 3.4 g/dL (3.4-5.0); ALBUMIN/GLOBULIN RATIO 0.9 (1.0-1.7); C-REACTIVE PROTEIN 13.5 mg/L (0-3.3); MAGNESIUM 1.8 mg/dL (1.8-2.4); TOTAL BILIRUBIN 0.6 mg/dL (0.2-1.0); TOTAL PROTEIN 7.3 g/dL (6.4-8.2)
[2018-08-02 17:22] VITALS: BP 162/90
== END 2018-08-02 17:28 | disposition left against medical advice (07) ==
LOC: ER 14:18
DX: I71.01 Dissection of thoracic aorta (principal); I16.0 Hypertensive urgency; F15.90 Other stimulant use, unspecified, uncomplicated
CPT/HCPCS: 36415; 71046; 80053; 80307; 81001; 83690; 83735; 84484; 86140; 87086; 93005; 96365; 96375; 99285; G0480; J0690; J3490; 87186; G0479

== ENCOUNTER 2018-10-06 12:07 | Emergency (ER) | payer OTHER ==
[~2018-10-06] VITALS: Ht 167.6 cm; Wt 68.0 kg
[~2018-10-06 12:07] MED LIST changes: -HYDR12.53 PO; +HYDR12.575 PO; -OXYC-323 PO; +OXYC1TAB15 PO
[2018-10-06] MEDS ORDERED: oxyCODONE/APAP 5/325 1 TAB TABLET PO ONE (12:45)
--- NOTE | 2018-10-06 13:17 | RAD ---
EXAM: CHEST 2 VIEWS. HISTORY: Right chest pain after injury. COMPARISON: 07/26/2018, 08/02/2018. FINDINGS: Frontal and lateral views of the chest are obtained. Ectasia and tortuosity of the aortic arch appears stable measuring approximately 5.5 cm by radiographs. This corresponds with the known aneurysm and dissection is seen on prior CT. There are no confluent infiltrates. The hemidiaphragms are mildly fragmented on the lateral projection. There is no pneumothorax or pleural effusion. The heart is not enlarged. There are no displaced right rib fractures. IMPRESSION: 1. Stable aortic ectasia, consistent with the known aortic dissection and aneurysm as seen on CT of 07/26/2018. 2. Hyperinflation. Correlate for chronic obstructive pulmonary disease. Electronically signed by: Cristian Luis MD (10/06/2018 1:13 PM) [facility]
[2018-10-06 13:30] VITALS: BP 170/102
--- NOTE | 2018-10-06 15:54 | PHYS DOC ---
Past Medical History Past Medical History: Hypertension, Kidney Stone Additional Past Medical Histor: ectopic preg, RIPPED AORTA 4 YRS AGO Past Surgical History: , Tubal ligation Additional Past Surgical Histo: ECTOPIC. KIDNEY STONE Additional Information: 15 CIGARETTES A DAY. Alcohol Use: Occasionally Drug Use: Methamphetamine, Other Social History Narrative: XANAX Adult General Chief Complaint Chief Complaint: CHEST PAIN-NON CARDIAC NATURE HPI HPI Patient is a 48 year old female who is presenting with chest wall pain. Her 8- year-old son and she were wrestling and he landed on her right chest wrong way she has had increasing pain in the sternal area since symptoms are shARp moderate worsening with palpation noted. Review of Systems Review of Systems Constitutional: Denies fever or chills [] Eyes: Denies change in visual acuity, redness, or eye pain [] HENT: Denies nasal congestion or sore throat [] GI: Denies abdominal pain, nausea, vomiting, bloody stools or diarrhea [] Neurologic: Denies headache, focal weakness or sensory changes [] All other systems were reviewed and found to be within normal limits, except as documented in this note. Current Medications Current Medications Current Medications Medications (Trade) Dose Ordered Sig/Kennedi Start Time Stop Time Status Last Admin Dose Admin Oxycodone/ Acetaminophen (Percocet 5/325) 2 tab 1X ONCE 10/06/18 12:45 10/06/18 12:46 DC 10/06/18 13:15 2 TAB Allergies Allergies Allergies Coded Allergies Type Severity Reaction Last Updated Verified No Known Drug Allergies 08/21/17 No Physical Exam Physical Exam Constitutional: Well developed, well nourished, no acute distress, non-toxic appearance. [] HENT: Normocephalic, atraumatic, bilateral external ears normal, oropharynx moist, no oral exudates, nose normal. [] Eyes: PERRLA, EOMI, conjunctiva normal, no discharge. [] Neck: Normal range of motion, no tenderness, supple, no stridor. [] Cardiovascular:Heart rate regular rhythm, no murmur [] Lungs & Thorax: Bilateral breath sounds clear to auscultation []chest wall tenderness is noted in the right chest area no trauma seen Abdomen: Bowel sounds normal, soft, no tenderness, no masses, no pulsatile masses. [] Skin: Warm, dry, no erythema, no rash. [] Back: No tenderness, no CVA tenderness. [] Extremities: No tenderness, no cyanosis, no clubbing, ROM intact, no edema. [] Neurologic: Alert and oriented X 3, normal motor function, normal sensory function, no focal deficits noted. [] Psychologic: Affect normal, judgement normal, mood normal. [] Current Patient Data Vital Signs Vital Signs Date Time Temp Pulse Resp B/P (MAP) Pulse Ox O2 Delivery O2 Flow Rate FiO2 10/06/18 13:30 76 16 170/102 (124) 96 Room Air 10/06/18 12:19 97.7 97.7 EKG EKG [] Radiology/Procedures Radiology/Procedures [] Impressions: IMPRESSION: 1. Stable aortic ectasia, consistent with the known aortic dissection and aneurysm as seen on CT of 07/26/2018. 2. Hyperinflation. Correlate for chronic obstructive pulmonary disease. Electronically signed by: Cristian Luis MD (10/06/2018 1:13 PM) [facility] DICTATED and SIGNED BY: RICHARD LUIS MD DATE: 10/06/18 1310 Course & Med Decision Making Course & Med Decision Making Pertinent Labs and Imaging studies reviewed. (See chart for details) 48-year-old female presenting with chief complaint of CHEST WALL PAIN. CXR NEG MECHANICAL BY HISTORY. ice rest, gradual return to activity. Dragon Disclaimer Dragon Disclaimer This electronic medical record was generated, in whole or in part, using a voice recognition dictation system. Departure Departure Impression: Primary Impression: Chest wall pain Additional Impression: Elevated blood pressure reading Disposition: HOME, SELF-CARE Condition: STABLE Patient Instructions: Chest Wall Pain, [id number] Problem Qualifiers PRETTY MA MD Oct 06, 2018 15:54
== END 2018-10-06 13:50 | disposition home or self-care (01) ==
LOC: ER 12:07
DX: R07.89 Other chest pain (principal); R03.0 Elevated blood-pressure reading, without diagnosis of hypertension; I10 Essential (primary) hypertension; F17.210 Nicotine dependence, cigarettes, uncomplicated
CPT/HCPCS: 71046; 99283

== ENCOUNTER 2018-10-30 08:34 | Emergency (ER) | payer OTHER ==
[~2018-10-30] VITALS: Ht 167.6 cm; Wt 70.3 kg
[2018-10-30 09:11] LABS: BASO # 0.1 x10^3/uL (0.0-0.2); BASO % 1 % (0-3); EOS # 0.1 x10^3/uL (0.0-0.7); EOS % 1 % (0-3); LYMPH # 1.3 x10^3/uL (1.0-4.8); LYMPH % 22 % (24-48); MEAN CORPUSCULAR HEMOGLOBIN 30 pg (25-35); MEAN CORPUSCULAR HGB CONC 33 g/dL (31-37); MEAN CORPUSCULAR VOLUME 91 fL (79-100); MONO # 0.6 x10^3/uL (0.0-1.1); MONO % 10 % (0-9); NEUT # 3.9 x10^3uL (1.8-7.7); NEUT % 65 % (31-73); PLATELET COUNT 223 x10^3/uL (140-400); RED BLOOD COUNT 4.94 x10^6/uL (3.50-5.40); RED CELL DISTRIBUTION WIDTH 13.2 % (11.5-14.5); WHITE BLOOD COUNT 5.9 x10^3/uL (4.0-11.0)
--- NOTE | 2018-10-30 09:11 | RAD ---
AP chest 10/30/2018 CLINICAL INDICATION: Right-sided chest pain. Comparison: Chest 11/11/2017, 10/06/2018, 08/02/2018 FINDINGS: Cardiac silhouette is normal. There is tortuosity and dilatation of the thoracic aorta. No pleural effusion, pneumothorax or focal consolidation. IMPRESSION: 1. Persistent dilatation of the thoracic aorta consistent with known aneurysm. 2. No acute pulmonary abnormality. Electronically signed by: Nils Mercado MD (10/30/2018 9:06 AM) [facility]
--- NOTE | 2018-10-30 09:44 | EKG ---
[facility] [address] [place] [address] Test Date: 2018-10-30 Test Time: 08:50:39 Pat Name: JOSE ANDRADE Department: Room: Gender: F Aprn: : 1970 Requested By: JUVENCIO KAHN Order Number: [id number] Reading MD: Stephen Gaffney Measurements Intervals [place] Rate: 45 P: 29 MT: 150 QRS: 38 QRSD: 82 T: 73 QT: 566 QTc: 496 Interpretive Statements SINUS BRADYCARDIA NONSPECIFIC ST-T WAVE CHANGES. PROLONGED QT NON SPECIFIC ST DEPRESSION ABNORMAL ECG Electronically Signed On 11-04-2018 9:27:29 [employer]TER by Stephen Gaffney
[2018-10-30 10:03] LABS: CALCIUM 9.3 mg/dL (8.5-10.1); CREATININE 1.1 mg/dL (0.6-1.0); GFR 53.2; POTASSIUM 3.5 mmol/L (3.5-5.1)
[2018-10-30 10:09] LABS: ALBUMIN 3.6 g/dL (3.4-5.0); ALBUMIN/GLOBULIN RATIO 1.1 (1.0-1.7); TOTAL BILIRUBIN 0.7 mg/dL (0.2-1.0); TOTAL PROTEIN 6.8 g/dL (6.4-8.2)
[2018-10-30] MEDS ORDERED: CONTRAST GIVEN. MC PRN (10:15)
[2018-10-30] MEDS ORDERED: IOHEXOL 350 MG/ML 100 ML VIAL. IV ONE (10:15)
[2018-10-30 10:25] LABS: PREG TEST PT QUAL NEGATIVE (NEG)
[2018-10-30] MEDS ORDERED: NITROGLYCERIN SUBLINGUAL 0.4 MG BOTTLE OF 25. SL PRN (10:30)
[2018-10-30] MEDS ORDERED: fentaNYL PF VIAL 100 MCG/2 ML VIAL IV ONE ×2 (10:45→12:00)
[2018-10-30] MEDS ORDERED: ONDANSETRON PF 4 MG/2 ML VIAL. IV ONE (10:45)
[2018-10-30 11:06] LABS: PROTHROMBIN TIME PATIENT 13.6 SEC (11.7-14.0)
--- NOTE | 2018-10-30 11:24 | PHYS DOC ---
Past Medical History Past Medical History: Hypertension, Kidney Stone Additional Past Medical Histor: ectopic preg, RIPPED AORTA 4 YRS AGO Past Surgical History: , Tubal ligation Additional Past Surgical Histo: ECTOPIC. KIDNEY STONE Alcohol Use: Heavy Drug Use: Methamphetamine, Other Adult General Chief Complaint Chief Complaint: CHEST PAIN HPI HPI Patient is a 48 year old female with known history of type B thoracic aortic dissection and medically at [facility] 4 years ago who presents from work with right-sided chest pain radiating to right shoulder. Pain is sharp, tearing, rated moderate to severe and began abruptly prior prior to ED arrival. He is not associated with shortness of breath, nausea, vomiting, sweats, abdominal pain. Feels different than prior dissection which patient describes as a burning sensation in her lower chest and upper abdomen. No fever, chills, sweats. No cough, sore throat. No leg pain or swelling. No history of CAD, valvular heart disease, PE, or DVT. Denies increased leg pain or swelling. No other acute symptoms or complaints. Does acknowledge routine methamphetamine and alcohol use. Additional history obtained from EMS. Review of Systems Review of Systems Review symptoms as per history of present illness. All other review symptoms as negative. All other systems were reviewed and found to be within normal limits, except as documented in this note. Current Medications Current Medications Current Medications Medications (Trade) Dose Ordered Sig/Kennedi Start Time Stop Time Status Last Admin Dose Admin Fentanyl Citrate (Fentanyl 2ml Vial) 50 mcg 1X ONCE 10/30/18 12:00 10/30/18 12:01 DC 10/30/18 11:57 50 MCG Info (CONTRAST GIVEN -- Rx MONITORING) 1 each PRN DAILY PRN 10/30/18 10:15 11/01/18 10:14 Iohexol (Omnipaque 350 Mg/ml) 100 ml 1X ONCE 10/30/18 10:15 10/30/18 10:16 DC 10/30/18 10:26 100 ML Nicardipine HCl 50 mg/Sodium Chloride 250 ml @ 25 mls/hr CONT PRN 10/30/18 12:30 Nitroglycerin (Nitrostat) 0.4 mg PRN Q5MIN PRN 10/30/18 10:30 Ondansetron HCl (Zofran) 4 mg 1X ONCE 10/30/18 10:45 10/30/18 10:46 DC 10/30/18 10:51 4 MG Sodium Chloride 1,000 ml @ 200 mls/hr 1X ONCE 10/30/18 11:30 10/30/18 16:29 10/30/18 11:30 200 MLS/HR Allergies Allergies Allergies Coded Allergies Type Severity Reaction Last Updated Verified No Known Drug Allergies 08/21/17 No Physical Exam Physical Exam Constitutional: Well developed, well nourished. [] HENT: Normocephalic, atraumatic, bilateral external ears normal, oropharynx moist, nose normal. [] Eyes: PERRLA, EOMI, conjunctiva normal. [] Neck: Normal range of motion. [] Cardiovascular:Heart rate regular rhythm, no murmur. Upper and lower extremity pulses 2+ and symmetric throughout.[] Lungs & Thorax: Bilateral breath sounds clear to auscultation. [] Abdomen: Bowel sounds normal, soft, no tenderness. [] Skin: Warm, dry. [] Back: No tenderness. [] Extremities: No tenderness. [] Neurologic: Alert and oriented X 3, normal motor function, normal sensory function, no focal deficits noted. [] Psychologic: Affect normal, judgement normal, mood normal. [] Current Patient Data Vital Signs Vital Signs Date Time Temp Pulse Resp B/P (MAP) Pulse Ox O2 Delivery O2 Flow Rate FiO2 10/30/18 11:48 141/75 (97) 100 Nasal Cannula 2.0 10/30/18 11:24 52 20 10/30/18 08:35 98.7 98.7 Lab Values Laboratory Tests Test 10/30/18 09:00 10/30/18 09:45 10/30/18 11:50 White Blood Count 5.9 x10^3/uL (4.0-11.0) Red Blood Count 4.94 x10^6/uL (3.50-5.40) Hemoglobin 15.0 g/dL (12.0-15.5) Hematocrit 45.0 % (36.0-47.0) Mean Corpuscular Volume 91 fL (79-100) Mean Corpuscular Hemoglobin 30 pg (25-35) Mean Corpuscular Hemoglobin Concent 33 g/dL (31-37) Red Cell Distribution Width 13.2 % (11.5-14.5) Platelet Count 223 x10^3/uL (140-400) Neutrophils (%) (Auto) 65 % (31-73) Lymphocytes (%) (Auto) 22 % (24-48) L Monocytes (%) (Auto) 10 % (0-9) H Eosinophils (%) (Auto) 1 % (0-3) Basophils (%) (Auto) 1 % (0-3) Neutrophils # (Auto) 3.9 x10^3uL (1.8-7.7) Lymphocytes # (Auto) 1.3 x10^3/uL (1.0-4.8) Monocytes # (Auto) 0.6 x10^3/uL (0.0-1.1) Eosinophils # (Auto) 0.1 x10^3/uL (0.0-0.7) Basophils # (Auto) 0.1 x10^3/uL (0.0-0.2) Prothrombin Time 13.6 SEC (11.7-14.0) Prothrombin Time INR 1.1 (0.8-1.1) PTT 31 SEC (24-38) D-Dimer ([place]) 2.30 ug/mlFEU (0.00-0.50) H Sodium Level 143 mmol/L (136-145) Potassium Level 3.5 mmol/L (3.5-5.1) Chloride Level 105 mmol/L (98-107) Carbon Dioxide Level 30 mmol/L (21-32) Anion Gap 8 (6-14) Blood Urea Nitrogen 21 mg/dL (7-20) H Creatinine 1.1 mg/dL (0.6-1.0) H Estimated GFR (Cockcroft-Gault) 53.2 BUN/Creatinine Ratio 19 (6-20) Glucose Level 102 mg/dL (70-99) H Calcium Level 9.3 mg/dL (8.5-10.1) Total Bilirubin 0.7 mg/dL (0.2-1.0) Aspartate Amino Transferase (AST) 16 U/L (15-37) Alanine Aminotransferase (ALT) 21 U/L (14-59) Alkaline Phosphatase 80 U/L (46-116) Creatine Kinase 36 U/L (26-192) Troponin I Quantitative < 0.017 ng/mL (0.000-0.055) Total Protein 6.8 g/dL (6.4-8.2) Albumin 3.6 g/dL (3.4-5.0) Albumin/Globulin Ratio 1.1 (1.0-1.7) Serum Test, Qualitative Negative (NEG) Ethyl Alcohol Level < 10 mg/dL (0-10) Urine Collection Type U cath Urine Color Yellow Urine Clarity Clear Urine pH 6.0 Urine Specific [place] >=1.030 Urine Protein 30 mg/dL (NEG-TRACE) Urine Glucose (UA) Negative mg/dL (NEG) Urine Ketones (Stick) Negative mg/dL (NEG) Urine Blood Negative (NEG) Urine Nitrite Negative (NEG) Urine Bilirubin Negative (NEG) Urine Urobilinogen Dipstick 0.2 mg/dL (0.2 mg/dL) Urine Leukocyte Esterase Negative (NEG) Urine RBC Occ /HPF (0-2) Urine WBC 5-10 /HPF (0-4) Urine Bacteria Few /HPF (0-FEW) Urine Hyaline Casts Occasional /HPF Urine Opiates Screen Neg (NEG) Urine Methadone Screen Neg (NEG) Urine Barbiturates Neg (NEG) Urine Phencyclidine Screen Neg (NEG) Urine Amphetamine/Methamphetamine Pos (NEG) Urine Benzodiazepines Screen Neg (NEG) Urine Cocaine Screen Neg (NEG) Urine Cannabinoids Screen Neg (NEG) Urine Ethyl Alcohol Neg (NEG) Laboratory Tests 10/30/18 09:00 Laboratory Tests 10/30/18 09:45 EKG EKG [EKG: Sinus bradycardia, rate 45, poor R Ray progression in anterior leads with ST elevation and biphasic T waves in leads V2 V3 and V4, no reciprocal changes.] Radiology/Procedures Radiology/Procedures XR chest: Persistent dilatation of the thoracic aorta consistent with known aneurysm per radiology report Course & Med Decision Making Course & Med Decision Making Pertinent Labs and Imaging studies reviewed. (See chart for details) [CT angio chest: Conversion of known ascending aorta type B dissection to acute type A dissection involving arch, reviewed and possible early hemopericardium on preliminary verbal radiology report. Initial blood pressure, heart rate stable. Repeat narcotic pain medications provided. Patient became progressively more hypertensive requiring Cardene drip. Dr. Harman, on-call for CT surgery contacted. Dr. Harman is in the OR and unavailable to take patient to surgery. Dr. Maria at [facility] declined. Dr. Gibbs accepts for aircraft load controller CT surgeon at 12:[address] [facility] on the [place]. Patient to be taken directly to CVICU. EMS contacted for transfer. Patient updated with diagnosis, questions answered.[] Dragon Disclaimer Dragon Disclaimer This electronic medical record was generated, in whole or in part, using a voice recognition dictation system. Departure Departure Impression: Primary Impression: Aortic aneurysm and dissection Disposition: 05 TRANSFER OTHER Condition: CRITICAL Referrals: NO PCP (PCP) JUVENCIO KAHN DO Oct 30, 2018 11:23
[2018-10-30] MEDS ORDERED: IV NORMAL SALINE 1000ML BAG 1,000 ML IV ONE (11:30)
--- NOTE | 2018-10-30 11:30 | RAD ---
PQRS Compliance Statement: One or more of the following individualized dose reduction techniques were utilized for this examination: 1. Automated exposure control 2. Adjustment of the mA and/or kV according to patient size 3. Use of iterative reconstruction technique CT ANGIO CHEST ABD PELVIS Clinical Indication: CP SOA PREV H/O AORTIC REPAIR Comparison: CT angiogram chest abdomen and pelvis with contrast, July 26, 2018. TECHNIQUE: Helical CT imaging of the chest abdomen and pelvis is performed before and after 90 cc of Omnipaque [address] angiogram protocol. 3-D MIP and volume rendering reconstructions of the aorta performed. Findings: New from prior study on the precontrast images there is acute intramural hematoma of the ascending thoracic aorta extending to near the aortic root and extending distally to the previously seen dissection flap just distal to the left subclavian artery origin. The diameter of the ascending thoracic aorta has increased now measuring up to 4.6 cm, previously 3.7 cm. The acute intramural hematoma occupies about two thirds of the lumen. On postcontrast images there are 2 small blushes of contrast in the intramural hematoma as seen on image 39 of series 5 and image 34. There is small volume hemopericardium. There is narrowing of the right coronary artery at its origin due to the intramural hematoma, image 53. Cardiac size is stable. 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 Minimal atelectasis posterior right lower lobe. Central airways are patent. Minimal linear atelectasis or scarring in the lingula. Dissection of the abdominal aorta is stable. Unchanged intramural hematoma in the distal abdominal aorta. Contrast opacification of the false lumen is less than on the prior study. Dissection flap extends into the left common iliac artery, unchanged. Dissection flap previously extended into the left external iliac artery. There is minimal contrast opacification of the left external iliac artery. Bilateral adrenal gland hyperplasia. Atrophy and cortical thinning of the right kidney is unchanged. Calcifications in the kidneys are stable. There is no bowel obstruction. Urinary bladder and uterus unremarkable. No pelvic free fluid. Bones appear stable. IMPRESSION: 1. 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 There are 2 small foci of contrast enhancement in the intramural hematoma which could indicate active bleeding. There is narrowing at the origin of the right coronary artery due to the intramural hematoma. There is small volume hemopericardium. 2. Contrast opacification of the false lumen in the abdominal aorta is less than on the prior study. Contrast opacifies a tiny true lumen in the left common iliac artery extending to the bifurcation. There is limited contrast opacification of the left internal iliac artery. Dissection flap previously extended into the left external iliac artery. This artery cannot be evaluated on today's study due to no significant contrast opacification. Based on provided images cannot confirm patency of the left external iliac artery and left femoral arteries. Findings discussed with JUVENCIO KAHN at 10/30/2018 11:01 AM. FOR INTERNAL CODING PURPOSES Critical result: RESULT CODE: (C) Electronically signed by: Brandin Cobb MD (10/30/2018 11:26 AM) [id number]
[2018-10-30 12:10] LABS: BILIRUBIN,URINE NEGATIVE (NEG); CLARITY,URINE CLEAR; COLOR,URINE YELLOW; NITRITE,URINE NEGATIVE (NEG); PROTEIN,URINE 30 mg/dL (NEG-TRACE); UROBILINOGEN,URINE 0.2 mg/dL (0.2 mg/dL)
[2018-10-30 12:17] LABS: BARBITURATES NEG (NEG); BENZODIAZEPINES NEG (NEG); CANNABINOIDS NEG (NEG); COCAINE NEG (NEG); METHADONE NEG (NEG); OPIATES NEG (NEG); PHENCYCLIDINE NEG (NEG)
[2018-10-30 12:18] LABS: AMPHETAMINE/METHAMPHETAMINE POS (NEG); HYALINE CASTS, URINE OCCASIONAL /HPF
[2018-10-30 12:19] LABS: BACTERIA,URINE FEW /HPF (0-FEW); RBC,URINE OCC /HPF (0-2)
[2018-10-30] MEDS ORDERED: niCARdipine 50 MG in IV NORMAL SALINE 250ML 250 ML IV PRN (12:30)
[2018-10-30] MEDS ORDERED: dilTIAZem INJ 125 MG in IV DEXTROSE 5% 100ML 100 ML IV ONE (12:30)
[2018-10-30 12:33] VITALS: BP 149/91
== END 2018-10-30 12:52 | disposition short-term general hospital (02) ==
LOC: ER 08:34
DX: I71.01 Dissection of thoracic aorta (principal); I10 Essential (primary) hypertension; F10.20 Alcohol dependence, uncomplicated; F15.10 Other stimulant abuse, uncomplicated; Z87.442 Personal history of urinary calculi; Y90.0 Blood alcohol level of less than 20 mg/100 ml
CPT/HCPCS: 36415; 51701; 71045; 71275; 74174; 80053; 80307; 81001; 82550; 84484; 84703; 85025; 85379; 85610; 85730; 86850; 86900; 86901; 87086; 93005; 96374; 96375; 96376; 99285; G0480; J2405; J3010; J7030; J7050; Q9967; 96361